=== PATIENT | male | born 1935 | race Caucasian/White ===

== ENCOUNTER 2016-08-09 11:34 | Emergency (ER) | payer MEDICARE, OTHER ==
[2016-08-09 10:17] LABS: BASOPHILS 0.2 %; BASOPHILS ABSOLUTE 0.02 10/3/uL (0.0-0.16); EOSINOPHILS 1.4 %; EOSINOPHILS ABSOLUTE 0.18 10/3/uL (0.0-0.53); ER CBC TAT 0 Hrs 07 Mins; HEMATOCRIT 43.1 % (40.0-51.0); HEMOGLOBIN 14.4 g/dL (13.6-17.8); IMMATURE GRANULOCYTES 0.2 %; IMMATURE GRANULOCYTES ABSOLUTE 0.03 10/3/uL (0.0-0.11); LYMPHOCYTES 13.9 %; LYMPHOCYTES ABSOLUTE 1.78 10/3/uL (0.67-4.30); MEAN CORPUSCULAR HEMOGLOB 29.9 pg (26.0-34.0); MEAN CORPUSCULAR VOLUME 89.4 fL (80-100); MONOCYTES 9.9 %; MONOCYTES ABSOLUTE 1.27 10/3/uL (0.21-1.20); NEUTROPHILS 74.4 %; NEUTROPHILS ABSOLUTE 9.56 10/3/uL (2.02-8.40); PLATELET COUNT 306 10/3/uL (150-400); RBC DISTRIBUTION WIDTH 13.7 % (12.0-16.0); RED CELL COUNT 4.82 10/6/uL (4.7-6.1); WHITE BLOOD CELLS 12.8 10/3/uL (4.5-10.5)
[2016-08-09 10:18] LABS: MANUAL DIFF NO %; MEAN CORPUS HGB CONC 33.4 g/dL (32.0-36.0)
[2016-08-09 10:24] LABS: INTERNATIONAL NORMAL RATI 2.3 UNITS (-); PARTIAL THROMBO TIME 42.2 SEC (22.5-37.2); PROTIME (NOT ORD) 25.4 SEC (12.0-14.5)
[2016-08-09 10:35] LABS: BUN (BLOOD UREA NITROGEN) 18 MG/DL (6-23); CALCIUM, SERUM 9.4 MG/DL (8.5-10.4); CHEST PAIN PROFILE TAT 0 Hrs 25 Mins; CHLORIDE, SERUM 95 MMOL/L (96-112); CO2 (CARBON DIOXIDE) 33 MMOL/L (24-34); CREATININE 1.22 MG/DL (0.70-1.30); GFR AFRICAN AMERICAN 64 ML/MIN (>=60); GFR NON AFRICAN AMERICAN 56 ML/MIN (>=60); GLUCOSE, SERUM 98 MG/DL (60-99); SODIUM, SERUM 137 MMOL/L (135-148); TROPONIN I <0.02 NG/ML (<0.05)
[~2016-08-09 11:34] MED LIST: *UNABLE1; ALLEGRA180 PO; ARTHROTEC 75 PO; ASAB PO; BUM1 PO; BUM2 PO; CENTRUM TAB1 TAB PO; CHEMO IV; CHEMOTHERAPY IV; COMP10B PO; COREG3 PO; DEX4 PO; DOK250 MG PO; DSS PO; DURA25 TOP; DURA50 TOP; FENESIN IR400 MG PO; FLONASE NAS; HABIT21 TOP; IMDUR30 PO; IMDUR60 PO; KCL20UDL PO; KLOR-CON M2020 MEQ PO; L20 PO; L40 PO; L80 PO; LEVAQUIN750 MG PO; LIDODERM T; LIPITOR10 PO; LOP25 PO; LORTAB10 PO; LOVENOX1C SC; MCZ25 PO; MIRALAXPKT PO; MUCINEX600 MG PO; MYLANTA GAS125 M1 PO; NASONEX NAS; NEUR300 PO; NEUR400 PO; NEXIUM40 PO; NICODERM C21 MG/241 TOP; NICODERM C7 MG/24 HR TOP; NITROSTAT0.4 MG SL; OCEAN NAS; P20 PO; PROAIR HFA INH; PROAMAT5 PO; PROSCAR5 PO; PROTONIX PO; REFENESEN400 MG PO; SPIRIVA INH; ULTRAM ER300 MG PO; ULTRAM50 PO; UROXATRAL PO; VOLT75 PO; XARELTO15 MG PO; XARELTO20 MG PO; Z5 PO; ZOFRAN8 PO
== END 2016-08-09 14:14 | disposition home or self-care (01) ==
LOC: ER 11:34
PROVIDERS: Emergency Medicine
DX: R06.00 Dyspnea, unspecified (principal); R07.9 Chest pain, unspecified; Z85.118 Personal history of other malignant neoplasm of bronchus and lung; Z88.4 Allergy status to anesthetic agent; Z79.899 Other long term (current) drug therapy
CPT/HCPCS: 71275; 80048; 83735; 84484; 85025; 85610; 85730; 93005; 96374; 96375; 99285; J1170; J2405; Q9967

== ENCOUNTER 2017-01-05 02:58 | Emergency (ER) | payer MEDICARE, OTHER | END 2017-01-05 10:59 | disposition home or self-care (01) | LOC: ER 02:58 | PROC: 2Y41X5Z Packing of Nasal Region using Packing Material (ICD-10-PCS; principal; 2017-01-05) | DX: R04.0 Epistaxis (principal); D68.8 Other specified coagulation defects; I48.91 Unspecified atrial fibrillation; Z85.118 Personal history of other malignant neoplasm of bronchus and lung; Z91.048 Other nonmedicinal substance allergy status; Z79.899 Other long term (current) drug therapy | CPT/HCPCS: 99283; A9270-GY ==

== ENCOUNTER 2017-01-19 00:36 | Emergency (ER) | payer MEDICARE, OTHER ==
[~2017-01-19] VITALS: Ht 178 cm; Wt 102.1 kg
== END 2017-01-19 03:33 | disposition home or self-care (01) ==
LOC: ER 00:36
DX: R04.0 Epistaxis (principal); J44.9 Chronic obstructive pulmonary disease, unspecified; I11.0 Hypertensive heart disease with heart failure; I50.9 Heart failure, unspecified; I48.91 Unspecified atrial fibrillation; I25.10 Atherosclerotic heart disease of native coronary artery without angina pectoris; E78.5 Hyperlipidemia, unspecified; K21.9 Gastro-esophageal reflux disease without esophagitis; F32.9 Major depressive disorder, single episode, unspecified; F17.200 Nicotine dependence, unspecified, uncomplicated; Z85.118 Personal history of other malignant neoplasm of bronchus and lung; Z86.711 Personal history of pulmonary embolism; Z88.8 Allergy status to other drugs, medicaments and biological substances; Z79.899 Other long term (current) drug therapy
CPT/HCPCS: 99283